=== PATIENT | female | born 1990 | race Caucasian/White ===

== ENCOUNTER 2022-02-19 06:56 | Emergency (ER) | payer MEDICAID, OTHER ==
[~2022-02-19] VITALS: Ht 172.7 cm; Wt 116.0 kg
[2022-02-19 07:34] VITALS: BP 120/73
[2022-02-19] MEDS ORDERED: ACETAMINOPHEN 500 MG TAB PO ONE (09:00)
[2022-02-19] MEDS ORDERED: PENICILLIN G BENZ 1200000 UNITS/2 ML SYRG IM ONE ×2 (10:30→11:00)
[2022-02-19] MEDS ORDERED: DexAMETHasone SOD PHOS 10MG/1ML VIAL INJ IM ONE (10:30)
[2022-02-19] MEDS ORDERED: IBUP800T26 PO (10:31)
[2022-02-19] MEDS ORDERED: BENZ100C19 PO (10:31)
[2022-02-19] MEDS ORDERED: ACET-1158 PO (10:31)
[2022-02-19] MEDS ORDERED: LORA-483 GT (10:31)
== END 2022-02-19 11:09 | disposition home or self-care (01) ==
LOC: ER 06:56
DX: J02.0 Streptococcal pharyngitis (principal)
CPT/HCPCS: 87070; 87880; 96372; 99284; J0561; J1100